=== PATIENT | male | born 1995 | race American Indian/Alaskan Native ===

== ENCOUNTER 2019-12-12 10:28 | Emergency (ER) | payer SELFPAY ==
[2019-12-12 10:35] VITALS: BP 128/64
--- NOTE | 2019-12-12 11:01 | Emergency Department Report ---
Chief Complaint: Dental/Oral Stated Complaint: TOOTH PAIN Time Seen by Provider: 12/12/19 10:55 - HPI History of Present Illness: pt is a 24 yo male who presents to the ED with c/o left upper dental pain that began 10 AM yesterday states it has been over a year since he has seen a dentist states he has a cracked tooth on the back upper side approximately two years ago no fever, no vomiting, no facial edema, no difficulty swallowing Vitals are normal On exam: Poor dentition, several missing/cracked teeth, there is a dental carry present in the left upper molar, no induration/edema/fluctuance of the gumline, no facial swelling, no tongue elevation, no trismus, no muffled voice, normal oropharynx, no uvular edema or deviation, uvula is midline, no facial edema Patient presents with poor dentition Several missing and cracked teeth No signs of dental abscess or dental infection No signs of facial cellulitis No signs of abscess Patient will be referred to dental clinics Medical screening examination performed and there is no threat to life or limb at this time Discussed strict return precautions with patient Discussed the importance of dental follow-up advised pt may alternate tylenol then ibuprofen every 6-8 hours as needed for discomfort. please follow up with a dentist. it is very important you follow up with a dentist. return to the emergency room for any new or worsening symptoms. - Exam Vital Signs: Vital Signs 12/12/19 10:33 Temperature 98.2 F Pulse Rate 65 Respiratory 18 Rate Blood Pressure 128/64 O2 Sat by Pulse 98 Oximetry MSE screening note: Focused history and physical exam performed. ED Disposition for MSE Clinical Impression: Dental caries, Cracked tooth, Dentalgia Disposition: Z-07 MED SCREENING EXAM-LEFT Is pt being admited?: No Does the pt Need Aspirin: No Condition: Stable Instructions: Dental Caries (ED) Additional Instructions: may alternate tylenol then ibuprofen every 6-8 hours as needed for discomfort. please follow up with a dentist. it is very important you follow up with a dentist. return to the emergency room for any new or worsening symptoms. Referrals: [facility] [Outside] - 2-3 Days [facility] [Outside] - 2-3 Days Forms: Work/School Release Form(ED) Time of Disposition: 10:59 Print Language: CZECH
== END 2019-12-12 11:06 | disposition left against medical advice (07) ==
LOC: ED 10:28
DX: K08.89 Other specified disorders of teeth and supporting structures (principal); Z53.21 Procedure and treatment not carried out due to patient leaving prior to being seen by health care provider
CPT/HCPCS: 99281